=== PATIENT | male | born 1980 ===

== ENCOUNTER 2016-05-05 19:58 | Emergency (ER) | payer MEDICAID ==
[2016-05-05 20:08] VITALS: BP 143/80; PULSE 87; RESP 20; TEMP 96.6; O2SAT 100
--- NOTE | 2016-05-05 20:19 | ED PDOC ---
HPI: Back Time Seen by Provider: 05/05/16 20:12 Chief Complaint (Nursing): Back Pain Chief Complaint (Provider): Left Sided Back Pain History Per: Patient, Family History/Exam Limitations: no limitations Onset/Duration Of Symptoms: Days (x3) Current Symptoms Are (Timing): Still Present Quality Of Discomfort: Unable To Describe Severity: Moderate Previous Symptoms: None Associated Symptoms: None Exacerbating Factor(s): Movement Additional Complaint(s): Irving Henson is a 36 year old male, with no pertinent past medical history, who presents to the ED on 05/05/16, accompanied by a family member, for the evaluation of a moderate amount of left-sided, thoracic back pain that he has experienced x3 days. Pain is reportedly worse with movement, though he is capable of unassisted ambulation. Denies numbness, tingling, focal weakness within his lower extremities or incontinence. Has taken no analgesics prior to arrival. PMD: none Past Medical History Reviewed: Historical Data, Nursing Documentation, Vital Signs Vital Signs: Last Vital Signs Temp 96.6 F L 05/05/16 20:06 Pulse 87 05/05/16 20:06 Resp 20 05/05/16 20:06 BP 143/80 05/05/16 20:06 Pulse Ox 100 05/05/16 20:06 - Medical History PMH: Migraine - Surgical History Surgical History: No Surg Hx - Family History Family History: States: Unknown Family Hx - Social History Current smoker - smoking cessation education provided: Yes Alcohol: None Drugs: Denies - Home Medications Home Medications: Ambulatory Orders Medication Instructions Recorded Docusate Sodium [Colace] 100 mg PO BID PRN #0 10 11/04/13 Cyclobenzaprine [Cyclobenzaprine 10 mg PO Q8 PRN #9 tab 01/17/14 HCl] Ibuprofen [Motrin] 600 mg PO Q6 PRN #20 tab 01/17/14 Oxycodone HCl/Acetaminophen 1 tab PO Q4 PRN #15 tab 01/17/14 [Percocet 325 mg-5 mg] Chlorzoxazone [Lorzone] 750 mg PO BID #10 tablet 05/05/16 Ibuprofen [Motrin Tab] 800 mg PO Q6H PRN #20 tab 05/05/16 - Allergies Allergies/Adverse Reactions: Allergies Allergy/AdvReac Type Severity Reaction Status Date / Time No Known Allergies Allergy Verified 11/02/14 21:48 Review of Systems Genitourinary Male: Negative for: Incontinence Musculoskeletal: Positive for: Back Pain (left-sided thoracic) Neurological: Negative for: Weakness, Numbness Physical Exam - Reviewed Nursing Documentation Reviewed: Yes Vital Signs Reviewed: Yes - Physical Exam Appears: Positive for: Non-toxic, No Acute Distress Back: Positive for: Muscle Spasm (noted to left parathoracic region). Negative for: Vertebral Tenderness Extremity: Positive for: Normal ROM Neurologic/Psych: Positive for: Alert, Oriented. Negative for: Motor/Sensory Deficits - ECG O2 Sat by Pulse Oximetry: 100 (RA) Pulse Ox Interpretation: Normal Medical Decision Making Medical Decision Makin:12 Initial Impression: muscle spasm Initial Plan: * Toradol 60mg IM * Valium 5mg PO * Reevaluation 21:45 - Pt reports feeling better. Scribe Attestation: Documented by Emily Kapadia, acting as a scribe for Ronit Valle PA-C. Provider Scribe Attestation: All medical record entries made by the Scribe were at my direction and personally dictated by me. I have reviewed the chart and agree that the record accurately reflects my personal performance of the history, physical exam, medical decision making, and the department course for this patient. I have also personally directed, reviewed, and agree with the discharge instructions and disposition. Disposition - Clinical Impression Clinical Impression: Back pain, Muscle spasm - Patient ED Disposition Is Patient to be Admitted: No Counseled Patient/Family Regarding: Diagnosis, Need For Followup, Rx Given - Disposition Referrals: [facility] [Outside] Disposition: Routine/Home Disposition Time: 21:47 Condition: GOOD Prescriptions: Chlorzoxazone [Lorzone] 750 mg PO BID #10 tablet Ibuprofen [Motrin Tab] 800 mg PO Q6H PRN #20 tab PRN Reason: Pain Instructions: Muscle Spasm (ED)
== END 2016-05-05 21:54 | disposition home or self-care (01) ==
LOC: H.ER 19:58
DX: M54.9 Dorsalgia, unspecified (principal); M62.838 Other muscle spasm

== ENCOUNTER 2016-09-04 00:18 | Emergency (ER) | payer OTHER, MEDICAID ==
[2016-09-04 00:31] VITALS: BP 130/78; PULSE 86; RESP 16; TEMP 98.8; O2SAT 99
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
--- NOTE | 2016-09-04 09:28 | RAD ---
PROCEDURE: Radiographs of the Lumbar Spine. HISTORY: pain COMPARISON: None available. FINDINGS: BONES: Alignment appears satisfactory. No listhesis. No acute displaced fracture identified. DISC SPACES: Unremarkable. OTHER FINDINGS: None. IMPRESSION: No acute displaced fracture or subluxation identified.
== END 2016-09-04 03:40 | disposition home or self-care (01) ==
LOC: MERGE 00:18 → H.ER 00:18 → EDBD 00:18 → H.ER 03:40
DX: S09.90XA Unspecified injury of head, initial encounter (principal); S13.4XXA Sprain of ligaments of cervical spine, initial encounter; M54.5 Low back pain; V49.50XA Passenger injured in collision with unspecified motor vehicles in traffic accident, initial encounter

== ENCOUNTER 2016-11-22 02:32 | Emergency (ER) | payer MEDICAID, OTHER ==
[2016-11-22 02:46] VITALS: BP 145/98; PULSE 84; RESP 16; TEMP 98.8; O2SAT 100
--- NOTE | 2016-11-22 03:13 | ED PDOC ---
Upper Extremity Pain/Injury Time Seen by Provider: 11/22/16 02:50 Chief Complaint (Nursing): Upper Extremity Problem/Injury Chief Complaint (Provider): Upper Extremity Problem History Per: Patient History/Exam Limitations: no limitations Onset/Duration Of Symptoms: Hrs (x5), Gradual, Persistent Current Symptoms Are (Timing): Still Present Quality: Sharp Pain Scale Rating Of: 10 Additional Complaint(s): 36 year old male presents to ED with complaints of atraumatic right shoulder pain x5 hours and has no past medical history. 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 Notes acute onset of right shoulder pain that progressively worsened with time. States ibuprofen taken x1 hour [employer] has not provided any relief. Notes being in severe pain and is unable to raise his right arm secondary to the pain. (+) pain radiation to neck. Describes pain as sharp, constant, and rates it a 10/10 for severity. PCP: MART[facility]NEZ Past Medical History Reviewed: Historical Data, Nursing Documentation, Vital Signs Vital Signs: Last Vital Signs Temp 98.8 F 11/22/16 02:44 Pulse 84 11/22/16 02:44 Resp 16 11/22/16 02:44 BP 145/98 H 11/22/16 02:44 Pulse Ox 100 11/22/16 02:44 - Medical History PMH: No Chronic Diseases - Surgical History Surgical History: No Surg Hx - Family History Family History: States: Unknown Family Hx - Living Arrangements Living Arrangements: With Family - Social History Current smoker - smoking cessation education provided: No Ex-Smoker (has not smoked in the last 12 months): No Alcohol: None Drugs: Denies - Home Medications Home Medications: Ambulatory Orders Medication Instructions Recorded Docusate Sodium [Colace] 100 mg PO BID PRN #0 10 11/04/13 Cyclobenzaprine [Cyclobenzaprine 10 mg PO Q8 PRN #9 tab 01/17/14 HCl] Ibuprofen [Motrin] 600 mg PO Q6 PRN #20 tab 01/17/14 Oxycodone HCl/Acetaminophen 1 tab PO Q4 PRN #15 tab 01/17/14 [Percocet 325 mg-5 mg] Chlorzoxazone [Lorzone] 750 mg PO BID #10 tablet 05/05/16 Ibuprofen [Motrin Tab] 800 mg PO Q6H PRN #20 tab 05/05/16 Cyclobenzaprine [Cyclobenzaprine 10 mg PO Q8 PRN #30 tab 09/04/16 HCl] Naproxen [Naprosyn] 500 mg PO BID PRN #30 tab 09/04/16 Cyclobenzaprine [Cyclobenzaprine 10 mg PO TID PRN #15 tab 11/22/16 HCl] Naproxen [Naprosyn] 500 mg PO Q12 #14 tab 11/22/16 - Allergies Allergies/Adverse Reactions: Allergies Allergy/AdvReac Type Severity Reaction Status Date / Time No Known Allergies Allergy Verified 11/22/16 02:44 Review of Systems ROS Statement: Except As Marked, All Systems Reviewed And Found Negative Musculoskeletal: Positive for: Shoulder Pain (right shoulder pain. limited ROM to right shoulder) Physical Exam - Reviewed Nursing Documentation Reviewed: Yes Vital Signs Reviewed: Yes - Physical Exam Appears: Positive for: Uncomfortable Skin: Positive for: Normal Color, Warm, Dry Neck: Positive for: Normal, Painless ROM, Supple Respiratory: Negative for: Respiratory Distress Extremity: Positive for: Tenderness (point tenderness to right AC joint). Negative for: Normal ROM (pain with active and passive ROM of right arm), Deformity Neurologic/Psych: Positive for: Alert, Oriented - ECG O2 Sat by Pulse Oximetry: 100 (RA) Pulse Ox Interpretation: Normal Medical Decision Making Medical Decision Makin Initial impression: right shoulder pain Initial plan: * Oxycodone 1 tab PO * Toradol 30mg IM * XR SHOULDER RT * Re-eval 0354 Upon re-evaluation, patient reports improvement in symptoms. XR: NAD Patient will be referred to Dr. Santos and [facility] for follow up. Patient is stable for discharge. Diagnosis: bursitis of right shoulder Scribe Attestation: Documented by Yana Forman acting as a scribe for Chidi Gupta MD. Scribe Attestation: All medical record entries made by the Scribe were at my direction and personally dictated by me. I have reviewed the chart and agree that the record accurately reflects my personal performance of the history, physical exam, medical decision making, and the department course for this patient. I have also personally directed, reviewed, and agree with the discharge instructions and disposition. Disposition - Clinical Impression Clinical Impression: Bursitis of right shoulder - Disposition Referrals: [facility] [Outside] Fly Santos III, MD [Staff Provider] - Disposition: Routine/Home Disposition Time: 03:54 Condition: STABLE Prescriptions: Cyclobenzaprine [Cyclobenzaprine HCl] 10 mg PO TID PRN #15 tab PRN Reason: shoulder pain/stiffness Naproxen [Naprosyn] 500 mg PO Q12 #14 tab Instructions: Shoulder Bursitis (ED) Forms: [facility] (Tristanian) Print Language: NEPALI
[2016-11-22] MEDS ORDERED: Oxycodone/Acetaminophen 5/325 mg Tab ONE (03:16)
[2016-11-22] MEDS: Oxycodone/Acetaminophen 5/325 mg Tab PO STA (03:19)
--- NOTE | 2016-11-22 08:49 | RAD ---
PROCEDURE: Radiographs of the Right Shoulder HISTORY: r/o fracture Limited range of motion. COMPARISON: No prior. FINDINGS: BONES: Normal. No fracture. JOINTS: Normal. Glenohumeral and acromioclavicular joints preserved. No osteoarthritis. SOFT TISSUES: Normal. OTHER FINDINGS: None. IMPRESSION: No significant or acute findings to account for/ related to the clinical presentation. Please note: No preliminary report/ innterpretation of this examination provided by emergency department personnel.
== END 2016-11-22 03:50 | disposition home or self-care (01) ==
LOC: H.ER 02:32
DX: M75.51 Bursitis of right shoulder (principal)
CPT/HCPCS: 73030; 96372; 99282; J1885

== ENCOUNTER 2017-12-02 12:47 | Emergency (ER) | payer BC, MEDICAID ==
[2017-12-02 12:48] VITALS: BMI 25.0
[2017-12-02 13:02] VITALS: BP 119/85; RESP 16; O2SAT 99
[2017-12-02] MEDS ORDERED: Sodium Chloride 0.9% 1,000 ML IV STA (13:09)
--- NOTE | 2017-12-02 13:11 | ED PDOC ---
HPI: Influenza Time Seen by Provider: 12/02/17 13:04 Chief Complaint: Cough, Cold, Congestion Chief Complaint (Provider): bodyaches History Per: Patient, Family ( is translating for patient at bedside) Exam Limitations: no limitations Onset/Duration Of Symptoms: Days (1x) Symptoms include: fever (subjective), headache, bodyaches, nasal congestion. denies: cough, vomiting Hx Influenza Vaccination: No Additional complaint(s):: 37 year old male with a pertinent past medical history of headaches presents to the ED, accompanied by his , with complaints of a headache for 1x day. Patient's states that he has headaches frequently (every other day for several years). Patient reports having associated symptoms of a subjective fever , nasal congestion, chills and body aches. Patient reports taking advil last night with some relief. Patient denies having nausea and vomiting or abdominal pain. PMD: None Past Medical History Reviewed: Historical Data, Nursing Documentation, Vital Signs Vital Signs: Last Vital Signs Temp 99.9 F H 12/02/17 13:00 Pulse 92 H 12/02/17 13:00 Resp 16 12/02/17 13:00 BP 119/85 12/02/17 13:00 Pulse Ox 99 12/02/17 13:00 - Medical History PMH: Migraine - Surgical History Surgical History: No Surg Hx - Family History Family History: States: No Known Family Hx - Living Arrangements Living Arrangements: With Family - Social History Current smoker - smoking cessation education provided: Yes (.5 packs per day) Alcohol: None Drugs: Denies - Home Medications Home Medications: Ambulatory Orders Medication Instructions Recorded Docusate Sodium [Colace] 100 mg PO BID PRN #0 10 11/04/13 Cyclobenzaprine [Cyclobenzaprine 10 mg PO Q8 PRN #9 tab 01/17/14 HCl] Ibuprofen [Motrin] 600 mg PO Q6 PRN #20 tab 01/17/14 Oxycodone HCl/Acetaminophen 1 tab PO Q4 PRN #15 tab 01/17/14 [Percocet 325 mg-5 mg] Chlorzoxazone [Lorzone] 750 mg PO BID #10 tablet 05/05/16 Ibuprofen [Motrin Tab] 800 mg PO Q6H PRN #20 tab 05/05/16 Cyclobenzaprine [Cyclobenzaprine 10 mg PO Q8 PRN #30 tab 09/04/16 HCl] Cyclobenzaprine [Cyclobenzaprine 10 mg PO TID PRN #15 tab 11/22/16 HCl] Naproxen [Naprosyn] 500 mg PO Q12 #14 tab 11/22/16 Naproxen [Naprosyn] 500 mg PO BID PRN #30 tab 12/01/16 traMADol [Ultram] 50 mg PO TID PRN #15 tab 12/01/16 traZODone [Desyrel] 100 mg PO HS PRN #30 tab 03/21/17 Ibuprofen [Motrin Tab] 800 mg PO Q8 PRN #20 tab 12/02/17 Oseltamivir Phosphate [Tamiflu] 75 mg PO BID #10 capsule 12/02/17 - Allergies Allergies/Adverse Reactions: Allergies Allergy/AdvReac Type Severity Reaction Status Date / Time No Known Allergies Allergy Verified 11/22/16 02:44 Review of Systems ROS Statement: Except As Marked, All Systems Reviewed And Found Negative Constitutional: Positive for: Fever (subjective), Chills, Other (bodyaches) Eyes: Negative for: Vision Change ENT: Positive for: Nose Congestion. Negative for: Nose Discharge, Throat Swelling Respiratory: Negative for: Cough Gastrointestinal: Negative for: Nausea, Vomiting, Abdominal Pain, Diarrhea Genitourinary Male: Negative for: Dysuria Neurological: Positive for: Headache. Negative for: Dizziness Physical Exam - Reviewed Nursing Documentation Reviewed: Yes Vital Signs Reviewed: Yes - Physical Exam Appears: Positive for: Well, Non-toxic Head Exam: Positive for: ATRAUMATIC, NORMOCEPHALIC Skin: Positive for: Normal Color. Negative for: Rash Eye Exam: Positive for: Normal appearance ENT: Positive for: Normal ENT Inspection Neck: Negative for: Pain On Movement Of Neck Cardiovascular/Chest: Positive for: Regular Rate, Rhythm Respiratory: Positive for: Normal Breath Sounds. Negative for: Rhonchi, Wheezing, Respiratory Distress Back: Positive for: Normal Inspection Extremity: Positive for: Normal ROM Neurologic/Psych: Positive for: Alert, Oriented (3x) Medical Decision Making Medical Decision Makin:04 Initial impression: 37 year old male with a headache. Initial plan: * XRay chest 2 views * influenza AB * motrin tab 600 mg PO * reglan 10 mg IM * tylenol 975 mg PO * Urine dip 1:36 pm: Several attempts made to obtain labs and establish IV but they were unsuccessful. Patient is now refusing RN to try to obtain labs or IV again. Reglan was given IM and oral hydration initiated. 2:51 pm: Patient states he feels better after meds were given, headache is now resolved. Patient aware of all diagnostic testing results, all questions answered. Repeat temp 98.9, HR 84. Rx given for Tamiflu and Motrin. Advised fluids, rest and PMD follow-up in 2-3 days. Scribe Attestation: Documented by Madeleine Rey, acting as a scribe for Eduarda Jacobson PA-C. Provider Scribe Attestation: All medical record entries made by the Scribe were at my direction and personally dictated by me. I have reviewed the chart and agree that the record accurately reflects my personal performance of the history, physical exam, medical decision making, and the department course for this patient. I have also personally directed, reviewed, and agree with the discharge instructions and disposition. - Laboratory Results Urine dip results: Positive for: Ketones. Negative for: Leukocyte Esterase, Blood, Nitrate, Glucose, Bilirubin, Protein - ECG Interpretation Of ECG: NSR 83 bpm, no acute changes, reviewed by LILIAN and ED attending O2 Sat by Pulse Oximetry: 99 Pulse Ox Interpretation: Normal - Other Rad CXR X-Ray: Interpreted by Me, Viewed By Me X-Ray Interpretation: no acute finding Disposition - Clinical Impression Clinical Impression: Flu-like symptoms - Patient ED Disposition Is Patient to be Admitted: No Counseled Patient/Family Regarding: Studies Performed, Diagnosis, Need For Followup, Rx Given, Smoking Cessation - Disposition Referrals: Augustin Jerez MD [Staff Provider] - Disposition: Routine/Home Disposition Time: 14:54 Condition: STABLE Additional Instructions: Take rx meds as directed. Drink plenty of fluids daily. Stop smoking! Follow up in 2-3 days with primary care doctor. Prescriptions: Ibuprofen [Motrin Tab] 800 mg PO Q8 PRN #20 tab PRN Reason: Pain, Moderate (4-7) Oseltamivir Phosphate [Tamiflu] 75 mg PO BID #10 capsule Instructions: Viral Syndrome (DC), Quitting Smoking Forms: [employer] (Turkish), [facility] ED School/Work Excuse Print Language: IRISH
[2017-12-02 14:51] VITALS: TEMP 98.8
[2017-12-02 14:54] VITALS: PULSE 84
--- NOTE | 2017-12-02 22:12 | RAD ---
Date of service: 12/02/2017 HISTORY: cough, fever COMPARISON: No prior. TECHNIQUE: Chest PA and lateral FINDINGS: LUNGS: No evidence of focal consolidation in the lungs. PLEURA: No significant pleural effusion identified. No pneumothorax apparent. CARDIOVASCULAR: Normal. OSSEOUS STRUCTURES: No significant abnormalities. VISUALIZED UPPER ABDOMEN: Normal. OTHER FINDINGS: None. IMPRESSION: No radiographic evidence of pneumonia.
== END 2017-12-02 15:08 | disposition home or self-care (01) ==
LOC: H.ER 12:47
DX: J11.1 Influenza due to unidentified influenza virus with other respiratory manifestations (principal); F17.210 Nicotine dependence, cigarettes, uncomplicated
CPT/HCPCS: 71046; 87804; 96372; 99283; J2765